=== PATIENT | female | born 1975 | race African-American/Black ===

== ENCOUNTER 2017-03-15 04:36 | Emergency (ER) | payer SELFPAY ==
[~2017-03-15] VITALS: Ht 175.3 cm; Wt 77.0 kg
[2017-03-15] MEDS ORDERED: ACETAMINOPHEN 325MG TABLET PO STA (07:21)
[2017-03-15 07:59] LABS: BASOPHILS % 0.6 % (0.0-2.0); EOSINOPHILS % 2.2 % (0.0-5.0); HEMATOCRIT. 30.1 % (36.0-48.0); HEMOGLOBIN. 9.5 g/dL (12.0-16.0); LYMPHOCYTES % 33.1 % (20.0-50.0); MEAN CORPUSCULAR HEMOGLOBIN 21.6 pg (28.0-32.0); MEAN CORPUSCULAR VOLUME 68.8 fL (81.0-99.0); MEAN PLATELET VOLUME 8.7 fl (7.4-10.4); NEUTROPHILS % 58.1 % (40.0-76.0); PLATELET 160 x1000/uL (130-400); RED BLOOD CELL COUNT 4.37 mill/uL (4.2-5.4); RED CELL DISTRIBUTION WIDTH 21.2 % (11.6-14.6)
[2017-03-15 08:00] LABS: CHLORIDE 106 mEq/L (98-107)
[2017-03-15 08:06] LABS: CLARITY URINE CLOUDY (CLEAR); COLOR URINE YELLOW (YELLOW); GLUCOSE URINE NEGATIVE (NEGATIVE); KETONES URINE NEGATIVE (NEGATIVE); LEUKOCYTE ESTERASE URINE TRACE (NEGATIVE); NITRITE URINE POSITIVE (NEGATIVE); OCCULT BLOOD URINE 3+ (NEGATIVE); PH URINE 5.5 (4.5-8.0); PROTEIN URINE NEGATIVE (NEGATIVE); SPECIFIC GRAVITY URINE 1.021 (1.005-1.030); UROBILINOGEN URINE 0.2 E.U./dL (0.2-1.0)
[2017-03-15 08:10] LABS: CARBON DIOXIDE 27 mEq/L (21-32); ETHANOL BLOOD < 10 mg/dL
[2017-03-15 08:18] LABS: PLATELET ESTIMATE NORMAL
[2017-03-15 11:55] VITALS: BP 124/69
== END 2017-03-15 12:19 | disposition home or self-care (01) ==
LOC: ER 04:36
DX: N39.0 Urinary tract infection, site not specified (principal); G44.89 Other headache syndrome; D64.9 Anemia, unspecified; M79.1 Myalgia; M60.9 Myositis, unspecified
CPT/HCPCS: 36415; 71010; 80053; 81001; 83690; 85025; 93005; 99285; G0482; Z7610